=== PATIENT | male | born 1965 | race Caucasian/White ===

== ENCOUNTER 2019-03-04 19:12 | Emergency (ER) | payer BC ==
[2019-03-04 19:43] VITALS: TEMP 98.8
[2019-03-04] MEDS ORDERED: DIPH,PERTUS(ACELL)TETVAC-LF 0.5 ML VIAL IM ONE (19:57)
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
[2019-03-04 20:32] VITALS: BP 161/115; PULSE 110; RESP 17
== END 2019-03-04 20:30 | disposition home or self-care (01) ==
LOC: EC 19:12
DX: T20.10XA Burn of first degree of head, face, and neck, unspecified site, initial encounter (principal); T22.19 Burn of first degree of multiple sites of shoulder and upper limb, except wrist and hand; T31.0 Burns involving less than 10% of body surface; Z23 Encounter for immunization; G40.909 Epilepsy, unspecified, not intractable, without status epilepticus; Z79.899 Other long term (current) drug therapy; X08.8XXA Exposure to other specified smoke, fire and flames, initial encounter; Y92.69 Other specified industrial and construction area as the place of occurrence of the external cause; Y99.0 Civilian activity done for income or pay
CPT/HCPCS: 90471; 90715; 99283